=== PATIENT | male | born 1960 | race American Indian/Alaskan Native ===

== ENCOUNTER 2020-02-23 12:04 | Emergency (ER) | payer SELFPAY ==
[2020-02-23 13:05] LABS: Bilirubin,Urine NEG (Negative); Blood,Urine LG (Negative); Color,Urine Yellow (Yellow); Mucus,Urine FEW /HPF; Urobilinogen,Urine < 2.0 mg/dL (<2.0)
[2020-02-23 13:14] LABS: Protein,Urine >500 mg/dL (Negative); RBC,Urine > 182.0 /HPF (0.0-6.0)
--- NOTE | 2020-02-23 15:37 | Emergency Department Report ---
ED Male HPI - General Chief complaint: Urogenital-Male Stated complaint: BLOOD IN URINE/PAINFUL Time Seen by Provider: 02/23/20 15:05 Source: patient Mode of arrival: Ambulatory Limitations: No Limitations - History of Present Illness Initial comments: 59-year-old male, history of hypertension, presents to ED with complaint of hematuria. Patient states over the last few months he has been under the care of a urologist in [place]. He states approximately 3 weeks ago he was diagnosed with UTI and given antibiotics which he took for 3 to 4 days. Patient states his symptoms resolved after taking the medications. However, today, patient reports he began experiencing area, urinary frequency, and hematuria again. Patient denies abdominal pain, fever, vomiting, or back pain. Patient states he has an appointment with his urologist in 3 days for "a scan." He states he attempted to reach his urologist but he was unavailable, so he came to the ED. Complaint: other -: days(s) (1) Radiation: none Severity: mild Quality: burning Consistency: intermittent Improves with: none Worsens with: urination blood in urine, dysuria. denies: fever, nausea/vomiting - Related Data Previous Rx's Medication Instructions Recorded Last Taken Type Ibuprofen [Motrin 800 MG tab] 800 mg PO Q8HR PRN #20 tablet 03/09/16 Unknown Rx lisinopriL [Zestril TAB] 10 mg PO QDAY #30 tablet 03/09/16 Unknown Rx Sulfamethoxazole/Trimethoprim 1 each PO BID 5 Days #10 tablet 02/23/20 Unknown Rx [Bactrim DS TAB] Allergies Allergy/AdvReac Type Severity Reaction Status Date / Time No Known Allergies Allergy Verified 03/08/16 22:49 ED Review of Systems ROS: Stated complaint: BLOOD IN URINE/PAINFUL Other details as noted in HPI Comment: All other systems reviewed and negative Constitutional: denies: chills, fever Gastrointestinal: denies: abdominal pain, nausea, vomiting Genitourinary: dysuria, frequency, hematuria Musculoskeletal: denies: back pain ED Past Medical Hx - Past Medical History Previous Medical History?: Yes Hx Hypertension: Yes - Social History Smoking Status: Never Smoker Substance Use Type: None - Medications Home Medications: Home Medications Medication Instructions Recorded Confirmed Last Taken Type Ibuprofen [Motrin 800 MG tab] 800 mg PO Q8HR PRN #20 tablet 03/09/16 Unknown Rx lisinopriL [Zestril TAB] 10 mg PO QDAY #30 tablet 03/09/16 Unknown Rx Sulfamethoxazole/Trimethoprim 1 each PO BID 5 Days #10 tablet 02/23/20 Unknown Rx [Bactrim DS TAB] ED Physical Exam - General Limitations: No Limitations General appearance: alert, in no apparent distress - Head Head exam: Present: atraumatic, normocephalic - Eye Eye exam: Present: normal appearance - ENT ENT exam: Present: mucous membranes moist - Neck Neck exam: Present: normal inspection - Respiratory Respiratory exam: Absent: respiratory distress - Cardiovascular Cardiovascular Exam: Present: regular rate, normal rhythm - GI/Abdominal GI/Abdominal exam: Present: soft. Absent: distended, tenderness - Extremities Exam Extremities exam: Present: normal inspection - Neurological Exam Neurological exam: Present: alert, oriented X3 - Psychiatric Psychiatric exam: Present: normal affect, normal mood - Skin Skin exam: Present: warm, dry, intact, normal color ED Course Vital Signs 02/23/20 02/23/20 02/23/20 12:08 15:56 16:02 Temperature 99.1 F Pulse Rate 86 74 Respiratory 17 18 Rate Blood Pressure 199/80 Blood Pressure 188/94 [Left] O2 Sat by Pulse 92 100 Oximetry ED Medical Decision Making - Medical Decision Making 59-year-old male presents to ED with complaint of hematuria, dysuria, urinary frequency. Patient has evidence of hemorrhagic UTI. Patient reports he was recently on antibiotics approximately 3 weeks ago. He also reports he has a follow-up appointment with his urologist in 3 days. Patient does not require admission at this time. Blood pressure is elevated. Patient has history of hypertension and states he did not take his lisinopril today. Patient advised to take his lisinopril when he gets home. Prescription will be given for antibiotics. Return precautions given. - Differential Diagnosis UTI, malignancy Critical care attestation.: If time is entered above; I have spent that time in minutes in the direct care of this critically ill patient, excluding procedure time. ED Disposition Clinical Impression: UTI (urinary tract infection) Disposition: DC- TO HOME OR SELFCARE Is pt being admited?: No Condition: Stable Instructions: Urinary Tract Infection in Men (ED) Prescriptions: Sulfamethoxazole/Trimethoprim [Bactrim DS TAB] 1 each PO BID 5 Days #10 tablet Referrals: PRIMARY CARE, [Primary Care Provider] - 3-5 Days Time of Disposition: 15:38
[2020-02-23 15:57] VITALS: BP 188/94
== END 2020-02-23 16:05 | disposition home or self-care (01) ==
LOC: ED 12:04
DX: N39.0 Urinary tract infection, site not specified (principal); I10 Essential (primary) hypertension; Z79.899 Other long term (current) drug therapy
CPT/HCPCS: 81001; 87086; 99283

== ENCOUNTER 2020-05-23 14:25 | Emergency (ER) | payer OTHER ==
[2020-05-23] MEDS ORDERED: SODIUM CHLORIDE 0.9% 500 ML 500 ML IV ONE (14:39)
[2020-05-23] MEDS ORDERED: ACETAMINOPHEN 325 MG TAB PO ONE (14:48)
--- NOTE | 2020-05-23 14:52 | Event Note ---
ED Screening Note Date of service: 05/23/20 Time: 14:50 ED Screening Note: Pt complains of fatigue and urinary frequency x 3 days This initial assessment/diagnostic orders/clinical plan/treatment(s) is/are subject to change based on patients health status, clinical progression and re-assessment by fellow clinical providers in the ED. Further treatment and workup at subsequent clinical providers discretion. Patient/guardian urged not to elope from the ED as their condition may be serious if not clinically assessed and managed. Initial orders include: +SIRS sepsis protocol
[2020-05-23 14:57] LABS: Hematocrit 39.3 % (35.5-45.6); Hemoglobin 13.8 gm/dl (11.8-15.2); Mean Corpuscular HGB Conc 35 % (32-34); Mean Corpuscular Volume 87 fl (84-94); Platelet Count 232 K/mm3 (140-440); Red Blood Count 4.53 M/mm3 (3.65-5.03)
[2020-05-23 15:07] LABS: INR 1.2 (0.87-1.13)
[2020-05-23 15:11] LABS: Alanine Aminotransferase 143 units/L (7-56); BUN/Creatinine Ratio 18; Blood Urea Nitrogen 22 mg/dL (9-20); Calcium 9.2 mg/dL (8.4-10.2); Hemolysis Index 39
--- NOTE | 2020-05-23 15:32 | XRay Report ---
CHEST 1 VIEW INDICATION: possible Sepsis COMPARISON: None FINDINGS: Support devices: None Heart: Within normal limits Lungs/Pleura: Mild interstitial disease in the mid and lower lungs bilaterally. No consolidation. No pleural fluid. IMPRESSION: 1. Minimal disease in the lower lungs. Suggest follow-up. Signer Name: Tobi Ricketts MD Signed: 05/23/2020 3:28 PM Workstation Name: [id number]
[2020-05-23 16:04] LABS: Total Cells Counted 100
[2020-05-23 16:05] LABS: RBC Morphology Normal
--- NOTE | 2020-05-23 16:12 | Emergency Department Report ---
ED Fever HPI - General Chief Complaint: Fever Stated Complaint: SHAKY/NO ENERGY PUI?: Yes Time Seen by Provider: 05/23/20 15:50 Source: patient - History of Present Illness Initial Comments: Patient is a 60-year-old male with history of hypertension on lisinopril who presents to emergency department with complaint of generalized weakness and fatigue. Patient also has had fevers here in triage. Patient reports that he feels weak all over this has been present since May 21. He denies any chest pain or feeling short of breath. He has had no nausea or vomiting but has had diarrhea. He denies any sick contacts or any known contacts that have tested positive for COVID-19. ED Review of Systems ROS: Stated complaint: SHAKY/NO ENERGY Other details as noted in HPI Constitutional: fever, malaise, weakness Eyes: denies: eye discharge ENT: denies: throat pain Respiratory: denies: cough, shortness of breath Cardiovascular: denies: chest pain Endocrine: no symptoms reported Gastrointestinal: diarrhea. denies: abdominal pain, nausea, vomiting Genitourinary: as per HPI Musculoskeletal: as per HPI Skin: as per HPI Neurological: as per HPI, weakness Psychiatric: denies: anxiety, depression Hematological/Lymphatic: denies: easy bleeding ED Past Medical Hx - Past Medical History Previous Medical History?: Yes Hx Hypertension: Yes - Social History Smoking Status: Never Smoker Substance Use Type: None - Medications Home Medications: Home Medications Medication Instructions Recorded Confirmed Last Taken Type Ibuprofen [Motrin 800 MG tab] 800 mg PO Q8HR PRN #20 tablet 03/09/16 Unknown Rx lisinopriL [Zestril TAB] 10 mg PO QDAY #30 tablet 03/09/16 Unknown Rx Sulfamethoxazole/Trimethoprim 1 each PO BID 5 Days #10 tablet 02/23/20 Unknown Rx [Bactrim DS TAB] levoFLOXacin [Levaquin] 750 mg PO QDAY 10 Days #10 tablet 05/23/20 Unknown Rx ED Physical Exam - General Limitations: No Limitations General appearance: alert, in no apparent distress - Head Head exam: Present: atraumatic, normocephalic - Eye Eye exam: Present: normal appearance Pupils: Present: normal accommodation - ENT ENT exam: Present: normal exam - Neck Neck exam: Present: normal inspection - Respiratory Respiratory exam: Present: normal lung sounds bilaterally. Absent: respiratory distress - Cardiovascular Cardiovascular Exam: Present: tachycardia - GI/Abdominal GI/Abdominal exam: Present: soft. Absent: distended, tenderness - Rectal Rectal exam: Present: deferred - Extremities Exam Extremities exam: Present: normal inspection - Back Exam Back exam: Present: normal inspection - Neurological Exam Neurological exam: Present: alert, oriented X3, other (shaking of extremities; patient with difficulty sitting up but no focal deficits) - Psychiatric Psychiatric exam: Present: normal affect - Skin Skin exam: Present: warm, dry, intact ED Course Vital Signs 05/23/20 05/23/20 05/23/20 14:37 15:15 16:10 Temperature 101.3 F H 99.3 F Pulse Rate 117 H 111 H 98 H Respiratory 20 18 18 Rate Blood Pressure 139/80 135/79 [Left] Blood Pressure 126/76 [Right] O2 Sat by Pulse 97 98 98 Oximetry 05/23/20 18:02 Temperature 97.5 F L Pulse Rate 92 H Respiratory 20 Rate Blood Pressure 124/79 [Left] Blood Pressure [Right] O2 Sat by Pulse 97 Oximetry - Reevaluation(s) Reevaluation #1: 05/23/20 18:11 Patient does report feeling improved. I have reviewed patient's labs and imaging. Chest x-ray is notable for mild interstitial disease bilaterally however patient has no complaint of chest pain or shortness of breath or cough. Patient's EKG shows sinus rhythm at 92 but there are some nonspecific ST changes. Given this I will obtain a troponin although the patient does deny any chest pain. Reevaluation #2: 05/23/20 20:11 She does not appear to be septic as his heart rate has improved after IV fluids and a dose of Tylenol. Patient has received IV fluids for elevated CK. I think patient is total future is likely of viral illness likely COVID-19. Patient was ambulated and does not desat. Patient also has no complaint of chest pain or shortness of breath. Patient's LFTs are mildly elevated but this is likely secondary to his viral illness as he has no right upper quadrant pain and there is no elevated bilirubin. Patient's troponin is 0.037. We will plan on repeat. If negative patient to be discharged on Levaquin. Patient will be encouraged to follow-up with primary care as well as be placed on 10 days of p.o. Levaquin. The should treat any urinary tract infection as well as any possible pneumonia. Reevaluation #3: 05/23/20 20:27 Patient's repeat troponin is 0.042. Patient continues to deny chest pain. We will plan for patient to be discharged with outpatient follow-up. ED Medical Decision Making - Lab Data Result diagrams: 05/23/20 14:44 05/23/20 14:44 - EKG Data EKG shows normal: sinus rhythm, axis, intervals, QRS complexes Rate: normal - EKG Data When compared to previous EKG there are: previous EKG unavailable Interpretation: nonspecific ST-T wave cheng - Radiology Data Radiology results: report reviewed - Medical Decision Making Patient is a 60-year-old male who presents to the emergency department with complaint of fatigue. Upon initial evaluation patient is noted to be febrile as well as tachycardic. Differential has expanded to include sepsis. I will obtain a chest x-ray, labs, blood and urine cultures. Also consider is COVID-19 as patient reports diarrhea. Critical care attestation.: If time is entered above; I have spent that time in minutes in the direct care of this critically ill patient, excluding procedure time. ED Disposition Clinical Impression: UTI (urinary tract infection), Viral illness, Suspected COVID-19 virus infection Disposition: -01 TO HOME OR SELFCARE Is pt being admited?: No Does the pt Need Aspirin: No Condition: Stable Instructions: Antibiotic Medicine, Adult, Viral Respiratory Infection, [id number], Urinary Tract Infection, Adult, Prevent the Spread of COVID-19 if You Are Sick - CDC, COVID-19 Additional Instructions: You should undergo testing for Covid. Please visit a drive-through Covid testing center. Please return to the emergency department if you develop worsening fatigue, fever, shortness of breath. Please contact your primary care doctor in order to set up a telehealth visit this week. Prescriptions: levoFLOXacin [Levaquin] 750 mg PO QDAY 10 Days #10 tablet Referrals: PRIMARY CARE, [Primary Care Provider] - 3-5 Days
[2020-05-23 16:20] LABS: Bacteria,Urine 1+ /HPF (Negative); Bilirubin,Urine NEG (Negative); Blood,Urine LG (Negative); Color,Urine Amber (Yellow); Mucus,Urine 3+ /HPF; Sperm,Urine FEW /HPF (NP); Urobilinogen,Urine < 2.0 mg/dL (<2.0)
[2020-05-23 16:21] LABS: Protein,Urine >500 mg/dL (Negative)
[2020-05-23 18:04] VITALS: BP 124/79
[2020-05-23] MEDS ORDERED: ASPIRIN 81 MG TAB CHEW PO ONE (18:12)
[2020-05-23] MEDS ORDERED: SODIUM CHLORIDE 0.9% 1000 ML 1,000 ML ONE (18:25)
[2020-05-23] MEDS ORDERED: SODIUM CHLORIDE 0.9% 1000 ML 1,000 ML IV ONE (18:28)
--- NOTE | 2020-05-24 17:10 | Event Note ---
Date: 05/24/20 The patient was evaluated in the emergency department for symptoms described in the history of present illness. He/she was evaluated in the context of the global COVID-19 pandemic, which necessitated consideration that the patient might be at risk for infection with the virus that causes COVID-19. Institutional protocols and algorithms that pertain to the evaluation of patients at risk for COVID-19 are in a state of rapid change based on information released by regulatory bodies including the CDC and federal and state organizations. These policies and algorithms were followed during the patient's care in the emergency department. Please note that these policies, procedures and recommendations changed on a rapid basis. Charge nurse Bradley Mohr has brought this patient to my attention as he has gram-positive cocci in clusters. Uncertain if in 1 bottle or 2 bottles. Chart is reviewed and appreciated. Patient has transaminitis, as well as nonspecific troponin leak. Have requested that nursing team call patient back for repeat evaluation
== END 2020-05-23 21:06 | disposition home or self-care (01) ==
LOC: ED 14:25
DX: N39.0 Urinary tract infection, site not specified (principal); B34.9 Viral infection, unspecified; Z20.828 Contact with and (suspected) exposure to other viral communicable diseases; I10 Essential (primary) hypertension; Z79.1 Long term (current) use of non-steroidal anti-inflammatories (NSAID); Z79.899 Other long term (current) drug therapy
CPT/HCPCS: 36415; 71045; 80053; 80061; 81001; 82140; 82550; 82805; 84484; 85007; 85025; 85610; 87040; 87086; 93005; 96360; 96361; 99284; J7030; J7040